=== PATIENT | female | born 1955 | race Caucasian/White ===

== ENCOUNTER 2024-02-18 00:06 | Emergency (ER) | payer MEDICARE, OTHER ==
[~2024-02-18] VITALS: Ht 162.6 cm; Wt 71.7 kg
[2024-02-18] MEDS ORDERED: LOSA25TA27 PO (00:18)
[2024-02-18] MEDS ORDERED: TRAZ-182 PO (00:18)
[2024-02-18] MEDS ORDERED: IBUPROFEN 600 MG TABLET ONE ×2 (00:50→00:51)
[2024-02-18] MEDS: IBUPROFEN 600 MG TABLET PO ONE (00:56)
[2024-02-18] MEDS ORDERED: HYDR-4209 PO (01:44)
[2024-02-18] MEDS ORDERED: HYDROCODONE/APAP 5-325MG TABLET ONE (01:58)
[2024-02-18] MEDS: HYDROCODONE/APAP 5-325MG TABLET PO ONE (02:01)
[2024-02-18 02:34] VITALS: BP 130/76; TEMP 98.2; O2SAT 97
== END 2024-02-18 02:10 | disposition home or self-care (01) ==
LOC: EDBD 00:06 → ER 00:18
DX: S32.591A Other specified fracture of right pubis, initial encounter for closed fracture (principal); M25.551 Pain in right hip; F41.9 Anxiety disorder, unspecified; I10 Essential (primary) hypertension; W18.39XA Other fall on same level, initial encounter; Y93.89 Activity, other specified; Y92.89 Other specified places as the place of occurrence of the external cause; Y99.8 Other external cause status
CPT/HCPCS: 72192; A4606; A4663